=== PATIENT | male | born 1965 | race Caucasian/White ===

== ENCOUNTER 2020-08-30 09:26 | Emergency (ER) | payer OTHER, BC ==
[~2020-08-30] VITALS: Ht 182.9 cm; Wt 94.8 kg
== END 2020-08-30 11:04 | disposition home or self-care (01) ==
LOC: ER 09:26
DX: S93.601A Unspecified sprain of right foot, initial encounter (principal); E03.9 Hypothyroidism, unspecified; Z91.041 Radiographic dye allergy status; X50.1XXA Overexertion from prolonged static or awkward postures, initial encounter
CPT/HCPCS: 73620; 99283-25